=== PATIENT | female | born 1995 | race Two or more races ===

== ENCOUNTER → 2025-04-05 | Outpatient (CLI) | payer OTHER, SELFPAY ==
--- NOTE | 2025-04-05 15:54 | XR_ITS ---
Examination: Abdomen AP single view Technique: AP portable supine abdomen, single view Exam date and time: April 05, 2025 1601 hours INDICATIONS: Abdominal pain beginning 3 weeks ago FINDINGS: Moderate stool throughout the colon No obstruction No free air IMPRESSION: Nonobstructive bowel gas pattern
[2025-04-05 16:23] LABS: Misc Send Out* See Sep Rpt
[2025-04-05 17:06] LABS: Follicle Stimulating Hormone 2.97 mIU/mL (See Note)
[2025-04-11 07:04] LABS: Luteinizing Hormone* 4.2 mIU/mL
== END | disposition home or self-care (01) ==
LOC: CDIM 15:52 → COPL 16:12
PROVIDERS: PCP Registered Nurse; Referring Provider Registered Nurse; Visit Provider Radiology Diagnostic Radiology
DX: R10.2 Pelvic and perineal pain (principal); N97.9 Female infertility, unspecified; Z01.83 Encounter for blood typing
CPT/HCPCS: 36415; 74018; 83001; 83002; 86850; 86900; 86901